=== PATIENT | female | born 1955 | race Caucasian/White ===

== ENCOUNTER 2019-01-20 09:27 | Inpatient (IN) | payer MEDICARE ==
[~2019-01-20] VITALS: Ht 167.6 cm; Wt 60.5 kg
[~2019-01-20 09:27] MED LIST: ALBU2.5V8 IH; AMOX1TAB61 PO; BP MED; DOXY100C2 PO; LEVO500T59 PO; METH4TAB PO; POTA20TA12 PO; PRED20TA PO; TRIA1TAB3 PO; VARE1TAB5 PO
[2019-01-20] MEDS ORDERED: IV NORMAL SALINE 1000ML BAG 1,000 ML IV SCH (09:59)
[2019-01-20 10:30] LABS: BASO # 0.1 x10^3/uL (0.0-0.2); BASO % 1 % (0-3); EOS # 0.1 x10^3/uL (0.0-0.7); EOS % 0 % (0-3); HEMATOCRIT 43.5 % (36.0-47.0); HEMOGLOBIN 14.4 g/dL (12.0-15.5); LYMPH # 0.8 x10^3/uL (1.0-4.8); LYMPH % 6 % (24-48); MEAN CORPUSCULAR HEMOGLOBIN 29 pg (25-35); MEAN CORPUSCULAR HGB CONC 33 g/dL (31-37); MEAN CORPUSCULAR VOLUME 89 fL (79-100); MONO # 0.9 x10^3/uL (0.0-1.1); MONO % 6 % (0-9); NEUT # 12.7 x10^3uL (1.8-7.7); NEUT % 87 % (31-73); PLATELET COUNT 209 x10^3/uL (140-400); RED BLOOD COUNT 4.91 x10^6/uL (3.50-5.40); RED CELL DISTRIBUTION WIDTH 13.5 % (11.5-14.5); WHITE BLOOD COUNT 14.5 x10^3/uL (4.0-11.0)
[2019-01-20] MEDS ORDERED: IPRATRPIUM/ALBUTEROL 0.5/2.5MG 3 ML NEBU. NEB ONE (10:30)
[2019-01-20] MEDS ORDERED: ONDANSETRON PF 4 MG/2 ML VIAL. IV ONE (10:30)
[2019-01-20] MEDS ORDERED: DEXAMETHASONE SOD PHOS 20 MG/5 ML VIAL. IV ONE (10:30)
[2019-01-20] MEDS ORDERED: ACETAMINOPHEN 500 MG TABLET PO ONE (10:45)
--- NOTE | 2019-01-20 10:47 | RAD ---
Chest, 2 views, 01/20/2019: HISTORY: Shortness of breath Comparison is made to a study from 11/09/2015. The lungs are hyperexpanded compatible with COPD. There is mild prominence of the pulmonary markings, more so on the right, likely due to scarring. Linear opacities in the right chest suggests discoid atelectasis and/or scarring. There is no evidence of pleural fluid. The heart size is normal. IMPRESSION: 1. COPD with parenchymal scarring. 2. Linear right lower chest opacities suggest additional scarring and/or discoid atelectasis. Electronically signed by: Vimal Nixon MD (01/20/2019 10:44 AM) [facility]
[2019-01-20 11:05] LABS: CALCIUM 9.3 mg/dL (8.5-10.1); CREATININE 0.9 mg/dL (0.6-1.0); GFR 62.8; POTASSIUM 3.5 mmol/L (3.5-5.1)
[2019-01-20 11:40] LABS: MAGNESIUM 1.7 mg/dL (1.8-2.4); TOTAL BILIRUBIN 0.5 mg/dL (0.2-1.0); TOTAL PROTEIN 7.9 g/dL (6.4-8.2)
[2019-01-20 11:47] LABS: ALBUMIN 3.2 g/dL (3.4-5.0); ALBUMIN/GLOBULIN RATIO 0.7 (1.0-1.7)
--- NOTE | 2019-01-20 11:48 | PHYS DOC ---
Past Medical History Past Medical History: A-Fib, COPD, Hypertension, Pneumonia Additional Past Medical Histor: HX OF PNEUMONIA Past Surgical History: Other Additional Past Surgical Histo: R Ankle Fx Smoking: Cigarettes Alcohol Use: Occasionally Drug Use: None Adult General Chief Complaint Chief Complaint: SHORTNESS OF BREATH HPI HPI Patient is a 63 year old female with history of COPD who presents with shortness of breath and cough that has progressed over the past two weeks. She denies fever or chills and her cough has been productive of white sputum. She has been using her home breathing treatments with minimal improvement and her dyspnea progressed to the point today where she decided to seek treatment. She has had multiple bouts of pneumonia but states that this does not feel similar to those previous illnesses. She describes some chest pain yesterday that was bilateral along the ribs and states that it felt sore. At home she uses 3 L of O2 as needed, typically at nighttime. Review of Systems Review of Systems Constitutional: Denies fever or chills HENT: Denies nasal congestion or sore throat Respiratory: Reports cough, shortness of breath, dyspnea Cardiovascular: Denies chest pain or palpitations at this time GI: Reports nausea. Denies abdominal pain, vomiting, diarrhea or constipation. : Denies dysuria or hematuria Neurologic: Denies headache, focal weakness or sensory changes Complete systems were reviewed and found to be within normal limits, except as documented in this note. Current Medications Current Medications Current Medications Medications (Trade) Dose Ordered Sig/Guillermo Start Time Stop Time Status Last Admin Dose Admin Acetaminophen (Tylenol) 500 mg 1X ONCE 01/20/19 10:45 01/20/19 10:46 DC 01/20/19 11:08 500 MG Albuterol/ Ipratropium (Duoneb) 3 ml 1X ONCE 01/20/19 10:30 01/20/19 10:31 DC 01/20/19 10:28 3 ML Dexamethasone Sodium Phosphate (Decadron) 10 mg 1X ONCE 01/20/19 10:30 01/20/19 10:31 DC 01/20/19 11:10 10 MG Ondansetron HCl (Zofran) 4 mg 1X ONCE 01/20/19 10:30 01/20/19 10:31 DC 01/20/19 11:10 4 MG Sodium Chloride 1,000 ml @ 1,000 mls/hr Q1H 01/20/19 09:59 01/20/19 10:58 DC 01/20/19 11:13 1,000 MLS/HR Allergies Allergies Allergies Coded Allergies Type Severity Reaction Last Updated Verified No Known Drug Allergies 01/12/15 No Physical Exam Physical Exam Constitutional: Well developed, well nourished, in mild respiratory distress, non-toxic appearance HENT: Normocephalic, atraumatic, oropharynx dry Eyes: EOMI, conjunctiva normal, no discharge Neck: Supple without tenderness or lymphadenopathy Cardiovascular: Heart rate normal, regular rhythm Lungs & Thorax: Diminished breath sounds bilaterally, no focality noted. No expiratory or inspiratory wheezing. Patient within a prolonged expiratory phase through pursed lips Abdomen: Soft, no tenderness Extremities: Radial pulses +2 bilaterally, cap refill less than 2 seconds Neurologic: Alert and oriented, no focal deficits noted Psychologic: Affect normal, judgement normal, mood normal Current Patient Data Vital Signs Vital Signs Date Time Temp Pulse Resp B/P (MAP) Pulse Ox O2 Delivery O2 Flow Rate FiO2 01/20/19 10:30 94 Nasal Cannula 3.0 01/20/19 09:27 97.7 83 24 132/90 (104) 97.7 Lab Values Laboratory Tests Test 01/20/19 10:00 White Blood Count 14.5 x10^3/uL (4.0-11.0) H Red Blood Count 4.91 x10^6/uL (3.50-5.40) Hemoglobin 14.4 g/dL (12.0-15.5) Hematocrit 43.5 % (36.0-47.0) Mean Corpuscular Volume 89 fL (79-100) Mean Corpuscular Hemoglobin 29 pg (25-35) Mean Corpuscular Hemoglobin Concent 33 g/dL (31-37) Red Cell Distribution Width 13.5 % (11.5-14.5) Platelet Count 209 x10^3/uL (140-400) Neutrophils (%) (Auto) 87 % (31-73) H Lymphocytes (%) (Auto) 6 % (24-48) L Monocytes (%) (Auto) 6 % (0-9) Eosinophils (%) (Auto) 0 % (0-3) Basophils (%) (Auto) 1 % (0-3) Neutrophils # (Auto) 12.7 x10^3uL (1.8-7.7) H Lymphocytes # (Auto) 0.8 x10^3/uL (1.0-4.8) L Monocytes # (Auto) 0.9 x10^3/uL (0.0-1.1) Eosinophils # (Auto) 0.1 x10^3/uL (0.0-0.7) Basophils # (Auto) 0.1 x10^3/uL (0.0-0.2) Segmented Neutrophils % 89 % (35-66) H Band Neutrophils % 1 % (0-9) Lymphocytes % 5 % (24-48) L Monocytes % 5 % (0-10) Platelet Estimate Adequate (ADEQUATE) Sodium Level 139 mmol/L (136-145) Potassium Level 3.5 mmol/L (3.5-5.1) Chloride Level 99 mmol/L (98-107) Carbon Dioxide Level 29 mmol/L (21-32) Anion Gap 11 (6-14) Blood Urea Nitrogen 24 mg/dL (7-20) H Creatinine 0.9 mg/dL (0.6-1.0) Estimated GFR (Cockcroft-Gault) 62.8 BUN/Creatinine Ratio 27 (6-20) H Glucose Level 113 mg/dL (70-99) H Lactic Acid Level 1.5 mmol/L (0.4-2.0) Calcium Level 9.3 mg/dL (8.5-10.1) Magnesium Level 1.7 mg/dL (1.8-2.4) L Total Bilirubin 0.5 mg/dL (0.2-1.0) Aspartate Amino Transferase (AST) 19 U/L (15-37) Alanine Aminotransferase (ALT) 17 U/L (14-59) Alkaline Phosphatase 89 U/L (46-116) Creatine Kinase 138 U/L (26-192) Creatine Kinase MB (Mass) 1.2 ng/mL (0.0-3.6) Creatine Kinase MB Relative Index 0.9 % (0-4) Troponin I Quantitative < 0.017 ng/mL (0.000-0.055) PJ-Ayo-C-Type Natriuretic Peptide 502 pg/mL (0-124) H Total Protein 7.9 g/dL (6.4-8.2) Albumin 3.2 g/dL (3.4-5.0) L Albumin/Globulin Ratio 0.7 (1.0-1.7) L Lipase 67 U/L (73-393) L Laboratory Tests 01/20/19 10:00 Laboratory Tests 01/20/19 10:00 EKG EKG @0952: Sinus rhythm with rate of 82. Left axis deviation. No Q waves. Single PVC present. No ST segment elevation or depression.[] Radiology/Procedures Radiology/Procedures PROCEDURE: CHEST PA & LATERAL Chest, 2 views, 01/20/2019: HISTORY: Shortness of breath Comparison is made to a study from 11/09/2015. The lungs are hyperexpanded compatible with COPD. There is mild prominence of the pulmonary markings, more so on the right, likely due to scarring. Linear opacities in the right chest suggests discoid atelectasis and/or scarring. There is no evidence of pleural fluid. The heart size is normal. IMPRESSION: 1. COPD with parenchymal scarring. 2. Linear right lower chest opacities suggest additional scarring and/or discoid atelectasis. Electronically signed by: Vimal Nixon MD (01/20/2019 10:44 AM) [facility][] Course & Med Decision Making Course & Med Decision Making Pertinent Labs and Imaging studies reviewed. (See chart for details) Patient is a 63 year old female with past medical history of COPD who presents with 2 weeks of progressive cough and shortness of breath. Physical exam was positive for diminished breath sounds without any focal adventitious wheezing or rhonchi. Breathing treatment in ED provided only minimal improvement of her respiratory effort. She occasionally uses 3 L O2 at home but has required 3 L consistently in the ED and is maintaining her saturations in the low 90s. Steroids and fluids given in ED. Lactate negative. CBC showed leukocytosis with WBC of 14.5 but X-ray showed no evidence of pneumonia or effusion. Troponin negative. Lipase and CMP negative. Given patient's dyspnea and minimal improvement with Duoneb, she was agreeable to admission for further treatment of what is likely a COPD exacerbation. Patient states that her PCP is Dr. Richardson however she has not been seen for 2 years and thus will be admitted to hospitalist group. Patient requiring admission for further evaluation and treatment. Discussed with Dr. Iniguez (hospitalist) who is in agreement with admission. Discussed findings and plan with patient and family, who acknowledge understanding and agreement. [] Dragon Disclaimer Dragon Disclaimer This electronic medical record was generated, in whole or in part, using a voice recognition dictation system. Departure Departure Impression: Primary Impression: Shortness of breath Additional Impressions: COPD exacerbation Hypoxia Disposition: ADMITTED INPATIENT Admitting Physician: Massimo Snyder Condition: STABLE Referrals: ADEEL RICHARDSON MD (PCP) Critical Care Time Critical care time was 30 minutes which includes time at bedside, spent in discu ssion of patient's care with specialists and/or family members, with interpretation of laboratory and/or radiological studies and is exclusive of procedures. Problem Qualifiers SHAI BLANC DO January 20, 2019 11:48
[2019-01-20 11:52] LABS: % BANDS 1 % (0-9); % LYMPHS 5 % (24-48); % MONOS 5 % (0-10); % SEGS 89 % (35-66); PLT ESTIMATE ADEQUATE (ADEQUATE)
--- NOTE | 2019-01-20 13:04 | EKG ---
[facility] [address] [place] [address] Test Date: 2019-01-20 Test Time: 09:52:04 Pat Name: EDITH COMER Department: Room: Gender: F [employer]: : 1955 Requested By: SHAI BLANC Order Number: [id number] Reading MD: Measurements Intervals [place] Rate: 82 P: 0 DE: 128 QRS: -43 QRSD: 78 T: 66 QT: 370 QTc: 435 Interpretive Statements SINUS RHYTHM VENTRICULAR PREMATURE COMPLEX(ES) ABNORMAL LEFT AXIS DEVIATION S1,S2,S3 PATTERN NON SPECIFIC T ABNORMALITY ABNORMAL ECG No previous ECG available for comparison
[2019-01-20 15:00] VITALS: BP 147/83
[2019-01-20] MEDS: IPRATRPIUM/ALBUTEROL 0.5/2.5MG 3 ML NEBU. NEB SCH ×2 (15:19→19:41)
--- NOTE | 2019-01-20 16:04 | PDOC ---
PULMONARY PROGRESS NOTES Vitals Vital Signs Date Time Temp Pulse Resp B/P (MAP) Pulse Ox O2 Delivery O2 Flow Rate FiO2 01/20/19 15:22 94 Nasal Cannula 3.0 01/20/19 13:15 80 42 147/78 (101) 01/20/19 09:27 97.7 97.7 General: Alert, No acute distress Lungs: Other Cardiovascular: S1 Abdomen: Soft Extremities: No Edema Labs Laboratory Tests Test 01/20/19 10:00 White Blood Count 14.5 x10^3/uL (4.0-11.0) Red Blood Count 4.91 x10^6/uL (3.50-5.40) Hemoglobin 14.4 g/dL (12.0-15.5) Hematocrit 43.5 % (36.0-47.0) Mean Corpuscular Volume 89 fL (79-100) Mean Corpuscular Hemoglobin 29 pg (25-35) Mean Corpuscular Hemoglobin Concent 33 g/dL (31-37) Red Cell Distribution Width 13.5 % (11.5-14.5) Platelet Count 209 x10^3/uL (140-400) Neutrophils (%) (Auto) 87 % (31-73) Lymphocytes (%) (Auto) 6 % (24-48) Monocytes (%) (Auto) 6 % (0-9) Eosinophils (%) (Auto) 0 % (0-3) Basophils (%) (Auto) 1 % (0-3) Neutrophils # (Auto) 12.7 x10^3uL (1.8-7.7) Lymphocytes # (Auto) 0.8 x10^3/uL (1.0-4.8) Monocytes # (Auto) 0.9 x10^3/uL (0.0-1.1) Eosinophils # (Auto) 0.1 x10^3/uL (0.0-0.7) Basophils # (Auto) 0.1 x10^3/uL (0.0-0.2) Segmented Neutrophils % 89 % (35-66) Band Neutrophils % 1 % (0-9) Lymphocytes % 5 % (24-48) Monocytes % 5 % (0-10) Platelet Estimate Adequate (ADEQUATE) Sodium Level 139 mmol/L (136-145) Potassium Level 3.5 mmol/L (3.5-5.1) Chloride Level 99 mmol/L (98-107) Carbon Dioxide Level 29 mmol/L (21-32) Anion Gap 11 (6-14) Blood Urea Nitrogen 24 mg/dL (7-20) Creatinine 0.9 mg/dL (0.6-1.0) Estimated GFR (Cockcroft-Gault) 62.8 BUN/Creatinine Ratio 27 (6-20) Glucose Level 113 mg/dL (70-99) Lactic Acid Level 1.5 mmol/L (0.4-2.0) Calcium Level 9.3 mg/dL (8.5-10.1) Magnesium Level 1.7 mg/dL (1.8-2.4) Total Bilirubin 0.5 mg/dL (0.2-1.0) Aspartate Amino Transf (AST/SGOT) 19 U/L (15-37) Alanine Aminotransferase (ALT/SGPT) 17 U/L (14-59) Alkaline Phosphatase 89 U/L (46-116) Creatine Kinase 138 U/L (26-192) Creatine Kinase MB (Mass) 1.2 ng/mL (0.0-3.6) Creatine Kinase MB Relative Index 0.9 % (0-4) Troponin I Quantitative < 0.017 ng/mL (0.000-0.055) VM-Xrq-F-Type Natriuretic Peptide 502 pg/mL (0-124) Total Protein 7.9 g/dL (6.4-8.2) Albumin 3.2 g/dL (3.4-5.0) Albumin/Globulin Ratio 0.7 (1.0-1.7) Lipase 67 U/L (73-393) Laboratory Tests Test 01/20/19 10:00 White Blood Count 14.5 x10^3/uL (4.0-11.0) Red Blood Count 4.91 x10^6/uL (3.50-5.40) Hemoglobin 14.4 g/dL (12.0-15.5) Hematocrit 43.5 % (36.0-47.0) Mean Corpuscular Volume 89 fL (79-100) Mean Corpuscular Hemoglobin 29 pg (25-35) Mean Corpuscular Hemoglobin Concent 33 g/dL (31-37) Red Cell Distribution Width 13.5 % (11.5-14.5) Platelet Count 209 x10^3/uL (140-400) Neutrophils (%) (Auto) 87 % (31-73) Lymphocytes (%) (Auto) 6 % (24-48) Monocytes (%) (Auto) 6 % (0-9) Eosinophils (%) (Auto) 0 % (0-3) Basophils (%) (Auto) 1 % (0-3) Neutrophils # (Auto) 12.7 x10^3uL (1.8-7.7) Lymphocytes # (Auto) 0.8 x10^3/uL (1.0-4.8) Monocytes # (Auto) 0.9 x10^3/uL (0.0-1.1) Eosinophils # (Auto) 0.1 x10^3/uL (0.0-0.7) Basophils # (Auto) 0.1 x10^3/uL (0.0-0.2) Segmented Neutrophils % 89 % (35-66) Band Neutrophils % 1 % (0-9) Lymphocytes % 5 % (24-48) Monocytes % 5 % (0-10) Platelet Estimate Adequate (ADEQUATE) Sodium Level 139 mmol/L (136-145) Potassium Level 3.5 mmol/L (3.5-5.1) Chloride Level 99 mmol/L (98-107) Carbon Dioxide Level 29 mmol/L (21-32) Anion Gap 11 (6-14) Blood Urea Nitrogen 24 mg/dL (7-20) Creatinine 0.9 mg/dL (0.6-1.0) Estimated GFR (Cockcroft-Gault) 62.8 BUN/Creatinine Ratio 27 (6-20) Glucose Level 113 mg/dL (70-99) Lactic Acid Level 1.5 mmol/L (0.4-2.0) Calcium Level 9.3 mg/dL (8.5-10.1) Magnesium Level 1.7 mg/dL (1.8-2.4) Total Bilirubin 0.5 mg/dL (0.2-1.0) Aspartate Amino Transf (AST/SGOT) 19 U/L (15-37) Alanine Aminotransferase (ALT/SGPT) 17 U/L (14-59) Alkaline Phosphatase 89 U/L (46-116) Creatine Kinase 138 U/L (26-192) Creatine Kinase MB (Mass) 1.2 ng/mL (0.0-3.6) Creatine Kinase MB Relative Index 0.9 % (0-4) Troponin I Quantitative < 0.017 ng/mL (0.000-0.055) HW-Wip-F-Type Natriuretic Peptide 502 pg/mL (0-124) Total Protein 7.9 g/dL (6.4-8.2) Albumin 3.2 g/dL (3.4-5.0) Albumin/Globulin Ratio 0.7 (1.0-1.7) Lipase 67 U/L (73-393) Medications Active Scripts Medications Dose Route/Sig Max Daily Dose Days Date Category Dose Instructions Augmentin 875-125 Tablet (Amoxicillin/Potassium Clav) 1 Each Tablet 1 Tab PO BID 11/11/15 Reported START IMMEDIATELY Potassium Chloride 20 Meq Tab.er.prt 1 Tab PO DAILY 11/11/15 Reported LAST DOSE: 11/11/15 AM NEXT DOSE: 11/12/15 AM Proair Hfa Inhaler (Albuterol Sulfate) 8.5 Gm Hfa.aer.ad 2 Puff IH PRN Q4-6HRS 05/02/15 Rx Impression . FULL CONSULT DICTATED SEE ORDERS ACOPD ABNORMAL CXR THANKS TAYLOR LYMAN MD January 20, 2019 16:04
[2019-01-20] MEDS ORDERED: ALBUTEROL SULFATE 2.5 MG/3 ML NEBU. NEB PRN (16:15)
--- NOTE | 2019-01-20 17:07 | RAD ---
CT of the chest without contrast, 01/20/2019: HISTORY: Abnormal chest x-ray Noncontrast scans were obtained as requested and compared to a study from 11/06/2015. There is calcific plaquing of the thoracic aorta without evidence of aneurysm. Several coronary artery calcifications are noted. The heart is not enlarged. There is a trace amount of pericardial fluid present. Small mediastinal lymph nodes are seen. The largest of these measure approximately 1 cm in short axis dimension and are considered to be at the upper limits of normal in size. Dense consolidation present in the left lower chest on the previous study has resolved. There were a few scattered linear opacities in the lungs compatible with scarring. There are tiny nodular opacities demonstrating a centrilobular distribution as well as a tree-in-bud type configuration in some areas. There is dominant involvement of the right lung. Minimal scattered peripheral groundglass opacities are also noted on the right. There is no evidence of pleural fluid. There is an unchanged low-density left adrenal mass measuring approximately 1.8 x 4.1 cm. Its low internal CT number suggests an adrenal cyst or benign adenoma. IMPRESSION: 1. Mild, predominately centrilobular pulmonary opacities with dominant involvement of the right lung as described above. Diagnostic considerations include infectious bronchiolitis, respiratory bronchiolitis or hypersensitivity pneumonia. 2. Coronary artery calcifications. 3. Mediastinal lymph nodes of borderline size. 4. Stable left adrenal low-density mass compatible with a benign adenoma or cyst. PQRS Compliance Statement: One or more of the following individualized dose reduction techniques were utilized for this examination: 1. Automated exposure control 2. Adjustment of the mA and/or kV according to patient size 3. Use of iterative reconstruction technique Electronically signed by: Vimal Nixon MD (01/20/2019 5:04 PM) [facility]
--- NOTE | 2019-01-20 18:31 | PDOC1 ---
History and Physical Date of Admission Date of Admission DATE: 01/20/19 TIME: 18:31 Identification/Chief Complaint Chief Complaint seen in er, 63 year old female with history of COPD who presents with shortness of breath and cough that has progressed over the past two weeks. She denies fever or chills and her cough has been productive of white sputum. She has been using her home breathing treatments with minimal improvement and her dyspnea progressed to the point today where she decided to seek treatment. She has had multiple bouts of pneumonia but states that this does not feel similar to those previous illnesses. She describes some chest pain yesterday that was bilateral along the ribs and states that it felt sore. At home she uses 3 L of O2 as needed, typically at nighttime. no hemoptysis reported Past Medical History Past Medical History Past Medical History Past Medical History: A-Fib, COPD, Hypertension, Pneumonia Additional Past Medical Histor: HX OF PNEUMONIA Past Surgical History: Other Additional Past Surgical Histo: R Ankle Fx Smoking: Cigarettes Alcohol Use: Occasionally Drug Use: None fhx copd Cardiovascular: HTN Pulmonary: COPD, Pneumonia CENTRAL NERVOUS SYSTEM: Other GI: No pertinent hx Heme/Onc: No pertinent hx Hepatobiliary: No pertinent hx Psych: No pertinent hx Rheumatologic: No pertinent hx Infectious disease: No pertinent hx Renal/: No pertinent hx Endocrine: No pertinent hx Past Surgical History Past Surgical History: Other Family History Family History: Cancer, Diabetes, Heart Disease Social History Smoke: 1 pack per day ALCOHOL: occassional Drugs: None Current Problem List Problem List Problems Medical Problems: (1) COPD exacerbation Status: Acute (2) Hypoxia Status: Acute (3) Shortness of breath Status: Acute Current Medications Current Medications Current Medications Sodium Chloride 1,000 ml @ 1,000 mls/hr Q1H IV Last administered on 01/20/19at 11:13; Start 01/20/19 at 09:59; Stop 01/20/19 at 10:58; Status DC Albuterol/ Ipratropium (Duoneb) 3 ml 1X ONCE NEB Last administered on 01/20/19at 10:28; Start 01/20/19 at 10:30; Stop 01/20/19 at 10:31; Status DC Dexamethasone Sodium Phosphate (Decadron) 10 mg 1X ONCE IV Last administered on 01/20/19at 11:10; Start 01/20/19 at 10:30; Stop 01/20/19 at 10:31; Status DC Ondansetron HCl (Zofran) 4 mg 1X ONCE IV Last administered on 01/20/19at 11:10; Start 01/20/19 at 10:30; Stop 01/20/19 at 10:31; Status DC Acetaminophen (Tylenol) 500 mg 1X ONCE PO Last administered on 01/20/19at 11:08; Start 01/20/19 at 10:45; Stop 01/20/19 at 10:46; Status DC Albuterol/ Ipratropium (Duoneb) 3 ml RTQID NEB Last administered on 01/20/19at 15:19; Start 01/20/19 at 16:00; Stop 01/21/19 at 15:59 Levofloxacin/ Dextrose 100 ml @ 100 mls/hr Q24H IV Last administered on 01/20/19at 16:15; Start 01/20/19 at 16:15 Albuterol Sulfate (Ventolin Neb Soln) 2.5 mg PRN Q2HR PRN NEB DYSPNEA; Start 01/20/19 at 16:15 Enoxaparin Sodium (Lovenox 40mg Syringe) 40 mg DAILY SQ ; Start 01/21/19 at 09:00 Methylprednisolone Sodium Succinate (SOLU-Medrol 125MG VIAL) 60 mg BID IV ; Start 01/20/19 at 21:00 Active Scripts Active Proair Hfa Inhaler (Albuterol Sulfate) 8.5 Gm Hfa.aer.ad 2 Puff IH PRN Q4-6HRS Reported Augmentin 875-125 Tablet (Amoxicillin/Potassium Clav) 1 Each Tablet 1 Tab PO BID START IMMEDIATELY Potassium Chloride 20 Meq Tab.er.prt 1 Tab PO DAILY LAST DOSE: 11/11/15 AM NEXT DOSE: 11/12/15 AM Allergies Allergies: Coded Allergies: No Known Drug Allergies (Unverified , 01/12/15) ROS Review of System Review of Systems Review of Systems Constitutional: Denies fever or chills HENT: Denies nasal congestion or sore throat Respiratory: Reports cough, shortness of breath, dyspnea Cardiovascular: Denies chest pain or palpitations at this time GI: Reports nausea. Denies abdominal pain, vomiting, diarrhea or constipation. : Denies dysuria or hematuria Neurologic: Denies headache, focal weakness or sensory changes 14 pt systems were reviewed and found to be within normal limits, except as documented Physical Exam Physical Exam Physical Exam Physical Exam Constitutional: Well developed, well nourished, in mild respiratory distress, non-toxic appearance HENT: Normocephalic, atraumatic, oropharynx dry Eyes: EOMI, conjunctiva normal, no discharge Neck: Supple without tenderness or lymphadenopathy Cardiovascular: Heart rate normal, regular rhythm Lungs & Thorax: Diminished breath sounds bilaterally, no focality noted. No expiratory or inspiratory wheezing. Patient within a prolonged expiratory phase through pursed lips Abdomen: Soft, no tenderness Extremities: Radial pulses +2 bilaterally, cap refill less than 2 seconds Neurologic: Alert and oriented, no focal deficits noted Psychologic: Affect normal, judgement normal, mood normal General: mild distress HEENT: EOMI, Mucous membr. moist/pink Heart: RRR Breasts: Not examined Neuro: Normal speech, Strength at 5/5 X4 ext, Cranial nerves 3-12 NL Psych/Mental Status: Mental status NL, Mood NL Vitals Vitals Vital Signs Date Time Temp Pulse Resp B/P (MAP) Pulse Ox O2 Delivery O2 Flow Rate FiO2 01/20/19 17:21 Nasal Cannula 3.0 01/20/19 15:22 94 01/20/19 15:00 97.3 98 16 147/83 (104) 97.3 Labs Labs Laboratory Tests Test 01/20/19 10:00 White Blood Count 14.5 x10^3/uL (4.0-11.0) Red Blood Count 4.91 x10^6/uL (3.50-5.40) Hemoglobin 14.4 g/dL (12.0-15.5) Hematocrit 43.5 % (36.0-47.0) Mean Corpuscular Volume 89 fL (79-100) Mean Corpuscular Hemoglobin 29 pg (25-35) Mean Corpuscular Hemoglobin Concent 33 g/dL (31-37) Red Cell Distribution Width 13.5 % (11.5-14.5) Platelet Count 209 x10^3/uL (140-400) Neutrophils (%) (Auto) 87 % (31-73) Lymphocytes (%) (Auto) 6 % (24-48) Monocytes (%) (Auto) 6 % (0-9) Eosinophils (%) (Auto) 0 % (0-3) Basophils (%) (Auto) 1 % (0-3) Neutrophils # (Auto) 12.7 x10^3uL (1.8-7.7) Lymphocytes # (Auto) 0.8 x10^3/uL (1.0-4.8) Monocytes # (Auto) 0.9 x10^3/uL (0.0-1.1) Eosinophils # (Auto) 0.1 x10^3/uL (0.0-0.7) Basophils # (Auto) 0.1 x10^3/uL (0.0-0.2) Segmented Neutrophils % 89 % (35-66) Band Neutrophils % 1 % (0-9) Lymphocytes % 5 % (24-48) Monocytes % 5 % (0-10) Platelet Estimate Adequate (ADEQUATE) Sodium Level 139 mmol/L (136-145) Potassium Level 3.5 mmol/L (3.5-5.1) Chloride Level 99 mmol/L (98-107) Carbon Dioxide Level 29 mmol/L (21-32) Anion Gap 11 (6-14) Blood Urea Nitrogen 24 mg/dL (7-20) Creatinine 0.9 mg/dL (0.6-1.0) Estimated GFR (Cockcroft-Gault) 62.8 BUN/Creatinine Ratio 27 (6-20) Glucose Level 113 mg/dL (70-99) Lactic Acid Level 1.5 mmol/L (0.4-2.0) Calcium Level 9.3 mg/dL (8.5-10.1) Magnesium Level 1.7 mg/dL (1.8-2.4) Total Bilirubin 0.5 mg/dL (0.2-1.0) Aspartate Amino Transf (AST/SGOT) 19 U/L (15-37) Alanine Aminotransferase (ALT/SGPT) 17 U/L (14-59) Alkaline Phosphatase 89 U/L (46-116) Creatine Kinase 138 U/L (26-192) Creatine Kinase MB (Mass) 1.2 ng/mL (0.0-3.6) Creatine Kinase MB Relative Index 0.9 % (0-4) Troponin I Quantitative < 0.017 ng/mL (0.000-0.055) KN-Aee-R-Type Natriuretic Peptide 502 pg/mL (0-124) Total Protein 7.9 g/dL (6.4-8.2) Albumin 3.2 g/dL (3.4-5.0) Albumin/Globulin Ratio 0.7 (1.0-1.7) Lipase 67 U/L (73-393) Laboratory Tests Test 01/20/19 10:00 White Blood Count 14.5 x10^3/uL (4.0-11.0) Red Blood Count 4.91 x10^6/uL (3.50-5.40) Hemoglobin 14.4 g/dL (12.0-15.5) Hematocrit 43.5 % (36.0-47.0) Mean Corpuscular Volume 89 fL (79-100) Mean Corpuscular Hemoglobin 29 pg (25-35) Mean Corpuscular Hemoglobin Concent 33 g/dL (31-37) Red Cell Distribution Width 13.5 % (11.5-14.5) Platelet Count 209 x10^3/uL (140-400) Neutrophils (%) (Auto) 87 % (31-73) Lymphocytes (%) (Auto) 6 % (24-48) Monocytes (%) (Auto) 6 % (0-9) Eosinophils (%) (Auto) 0 % (0-3) Basophils (%) (Auto) 1 % (0-3) Neutrophils # (Auto) 12.7 x10^3uL (1.8-7.7) Lymphocytes # (Auto) 0.8 x10^3/uL (1.0-4.8) Monocytes # (Auto) 0.9 x10^3/uL (0.0-1.1) Eosinophils # (Auto) 0.1 x10^3/uL (0.0-0.7) Basophils # (Auto) 0.1 x10^3/uL (0.0-0.2) Segmented Neutrophils % 89 % (35-66) Band Neutrophils % 1 % (0-9) Lymphocytes % 5 % (24-48) Monocytes % 5 % (0-10) Platelet Estimate Adequate (ADEQUATE) Sodium Level 139 mmol/L (136-145) Potassium Level 3.5 mmol/L (3.5-5.1) Chloride Level 99 mmol/L (98-107) Carbon Dioxide Level 29 mmol/L (21-32) Anion Gap 11 (6-14) Blood Urea Nitrogen 24 mg/dL (7-20) Creatinine 0.9 mg/dL (0.6-1.0) Estimated GFR (Cockcroft-Gault) 62.8 BUN/Creatinine Ratio 27 (6-20) Glucose Level 113 mg/dL (70-99) Lactic Acid Level 1.5 mmol/L (0.4-2.0) Calcium Level 9.3 mg/dL (8.5-10.1) Magnesium Level 1.7 mg/dL (1.8-2.4) Total Bilirubin 0.5 mg/dL (0.2-1.0) Aspartate Amino Transf (AST/SGOT) 19 U/L (15-37) Alanine Aminotransferase (ALT/SGPT) 17 U/L (14-59) Alkaline Phosphatase 89 U/L (46-116) Creatine Kinase 138 U/L (26-192) Creatine Kinase MB (Mass) 1.2 ng/mL (0.0-3.6) Creatine Kinase MB Relative Index 0.9 % (0-4) Troponin I Quantitative < 0.017 ng/mL (0.000-0.055) HO-Ukb-B-Type Natriuretic Peptide 502 pg/mL (0-124) Total Protein 7.9 g/dL (6.4-8.2) Albumin 3.2 g/dL (3.4-5.0) Albumin/Globulin Ratio 0.7 (1.0-1.7) Lipase 67 U/L (73-393) Images Images CT of the chest without contrast, 01/20/2019: HISTORY: Abnormal chest x-ray Noncontrast scans were obtained as requested and compared to a study from 11/06/2015. There is calcific plaquing of the thoracic aorta without evidence of aneurysm. Several coronary artery calcifications are noted. The heart is not enlarged. There is a trace amount of pericardial fluid present. Small mediastinal lymph nodes are seen. The largest of these measure approximately 1 cm in short axis dimension and are considered to be at the upper limits of normal in size. Dense consolidation present in the left lower chest on the previous study has resolved. There were a few scattered linear opacities in the lungs compatible with scarring. There are tiny nodular opacities demonstrating a centrilobular distribution as well as a tree-in-bud type configuration in some areas. There is dominant involvement of the right lung. Minimal scattered peripheral groundglass opacities are also noted on the right. There is no evidence of pleural fluid. There is an unchanged low-density left adrenal mass measuring approximately 1.8 x 4.1 cm. Its low internal CT number suggests an adrenal cyst or benign adenoma. IMPRESSION: 1. Mild, predominately centrilobular pulmonary opacities with dominant involvement of the right lung as described above. Diagnostic considerations include infectious bronchiolitis, respiratory bronchiolitis or hypersensitivity pneumonia. 2. Coronary artery calcifications. 3. Mediastinal lymph nodes of borderline size. 4. Stable left adrenal low-density mass compatible with a benign adenoma or cyst. VTE Prophylaxis Ordered VTE Prophylaxis Devices: Yes VTE Pharmacological Prophylaxi: Yes Assessment/Plan Assessment/Plan CT of the chest without contrast, 01/20/2019: IMPRESSION: 1. Mild, predominately centrilobular pulmonary opacities with dominant involvement of the right lung as described above. Diagnostic considerations include infectious bronchiolitis, respiratory bronchiolitis or hypersensitivity pneumonia. Dense consolidation present in the left lower chest on the previous study has resolved. There were a few scattered linear opacities in the lungs compatible with scarring. There are tiny nodular opacities demonstrating a centrilobular distribution as well as a tree-in-bud type configuration in some areas. There is dominant involvement of the right lung 2. Coronary artery calcifications. 3. Mediastinal lymph nodes of borderline size. 4. Stable left adrenal low-density mass compatible with a benign adenoma or cyst. 5. acute hypoxic resp failure 6. Acute exac of COPD PLAN O2 SUPPORT PULM CONSULT DVT PROPHYLAXIS iv levaquin iv tapering steroids dvt prophylaxis 72 MIN PT EXAM, CHART REVIEW, > 50% of time spent with exam, chart review, pt care coordination MIKEL PALACIOS MD January 20, 2019 18:31
[2019-01-20 19:41] VITALS: BP 120/67
[2019-01-20] MEDS: methylPREDNISolone SOD SUCC PF 125 MG/2 ML VIAL. IV SCH (21:10)
[2019-01-20 23:37] VITALS: BP 136/79
[2019-01-21] MEDS ORDERED: ALBUTEROL SULFATE 2.5 MG/3 ML NEBU. NEB PRN (00:15)
--- NOTE | 2019-01-21 01:05 | CONS ---
DATE OF CONSULTATION: 01/20/2019 ATTENDING PHYSICIAN: Dr. Iniguez. REASON FOR CONSULTATION: The patient is seen in pulmonary consultation at the request of Dr. Iniguez for increasing shortness of air. HISTORY OF PRESENT ILLNESS: The patient is a 63-year-old that has been smoking most of her adult life, has not been seen by a physician or in the Emergency Department in the past 12 months presented with increasing shortness of breath, cough productive of dark sputum. No hemoptysis. No nausea, vomiting or diarrhea. She normally wears oxygen at home. She has been wearing it on a p.r.n. basis, 3 liters. The patient denies syncope or near syncopal episode. No paroxysmal nocturnal dyspnea or pedal edema. PAST MEDICAL HISTORY: COPD, tobacco dependence, atrial fibrillation, hypertension, previous pneumonia. PAST SURGICAL HISTORY: She has had right ankle fracture repair. SOCIAL HISTORY: She smokes. Denies any alcohol intake. REVIEW OF SYSTEMS: CONSTITUTIONAL: No fever or chills. EYES: No change in visual acuity. HEENT: No nasal congestion or sore throat. PULMONARY: As indicated above. CARDIOVASCULAR: No chest pain or pressure. No anginal type of discomfort. GASTROINTESTINAL: No nausea, vomiting or diarrhea. GENITOURINARY: No dysuria or frequency. MUSCULOSKELETAL: No localized muscle aches or joint pains. SKIN: No new skin rashes. NEUROLOGIC: No headaches, diplopia or blurred vision. ALLERGIES: No known drug allergies. FAMILY HISTORY: Sister with bladder cancer. CURRENT MEDICATIONS: List was reviewed. PHYSICAL EXAMINATION: GENERAL: The patient appeared to be older than stated age. VITAL SIGNS: Stable. O2 saturation was greater than 92%. HEENT: Eyes, the sclerae were nonicteric. NECK: Jugular venous distention was not elevated. No lymphadenopathy. CHEST: Full expansion. LUNGS: Adequate airway flow with no wheezes. CARDIOVASCULAR: Regular rate and rhythm with S1, S2, no S3. ABDOMEN: Soft, nontender, nondistended. EXTREMITIES: No clubbing, cyanosis or edema. NEUROLOGIC: The patient was awake, alert, following commands. A detailed neuro exam was not performed. LABORATORY DATA: Reviewed. White count was elevated. Hemoglobin and hematocrit were noted. Electrolytes were noted. BUN and creatinine noted. Albumin was low. Chest x-ray reveals some scarring, possibly discoid atelectasis. IMPRESSION: 1. Acute exacerbation of chronic obstructive pulmonary disease. 2. Acute on chronic respiratory failure. 3. Abnormal chest x-ray. 4. Tobacco dependence. 5. Hypertension. 6. Chronic atrial fibrillation. PLAN: 1. Continue current steroids and antibiotics. 2. CT chest. 3. DVT prophylaxis. 4. Nebulized treatments. 5. We will make further recommendation depending on CT scan findings. 6. Once discharged home, follow up in the office. I do appreciate the privilege in sharing in this patient's care. TAYLOR LYMAN MD DR: MAMADOU/simon JOB#: [id number] / [id number]
[2019-01-21 03:59] VITALS: BP 145/69
[2019-01-21 07:00] VITALS: BP 134/79
[2019-01-21] MEDS: IPRATRPIUM/ALBUTEROL 0.5/2.5MG 3 ML NEBU. NEB SCH (07:22)
[2019-01-21] MEDS ORDERED: guaiFENesin DM 200MG/20MG 10 ML SYRUP PO PRN (07:45)
[2019-01-21] MEDS ORDERED: NICOTINE POLACRILEX 2MG GUM PACKAGE of 12. BC PRN (07:45)
[2019-01-21] MEDS ORDERED: NICOTINE 21MG PATCH. TD PRN (07:45)
[2019-01-21] MEDS: ENOXAPARIN 40 MG/0.4 ML SYRINGE. SQ SCH ×2 (08:13→08:18)
[2019-01-21] MEDS: methylPREDNISolone SOD SUCC PF 125 MG/2 ML VIAL. IV SCH (08:13)
--- NOTE | 2019-01-21 08:29 | PDOC ---
PULMONARY PROGRESS NOTES Subjective sob better, has cough, no pain Vitals Vital Signs Date Time Temp Pulse Resp B/P (MAP) Pulse Ox O2 Delivery O2 Flow Rate FiO2 01/21/19 07:24 94 Nasal Cannula 3.0 01/21/19 03:59 97.7 73 20 145/69 (94) 97.7 General: Alert, No acute distress Lungs: Other Cardiovascular: Other (irreg ) Abdomen: Soft, Non-tender Extremities: No Edema Skin: Warm Labs Laboratory Tests Test 01/20/19 10:00 White Blood Count 14.5 x10^3/uL (4.0-11.0) Red Blood Count 4.91 x10^6/uL (3.50-5.40) Hemoglobin 14.4 g/dL (12.0-15.5) Hematocrit 43.5 % (36.0-47.0) Mean Corpuscular Volume 89 fL (79-100) Mean Corpuscular Hemoglobin 29 pg (25-35) Mean Corpuscular Hemoglobin Concent 33 g/dL (31-37) Red Cell Distribution Width 13.5 % (11.5-14.5) Platelet Count 209 x10^3/uL (140-400) Neutrophils (%) (Auto) 87 % (31-73) Lymphocytes (%) (Auto) 6 % (24-48) Monocytes (%) (Auto) 6 % (0-9) Eosinophils (%) (Auto) 0 % (0-3) Basophils (%) (Auto) 1 % (0-3) Neutrophils # (Auto) 12.7 x10^3uL (1.8-7.7) Lymphocytes # (Auto) 0.8 x10^3/uL (1.0-4.8) Monocytes # (Auto) 0.9 x10^3/uL (0.0-1.1) Eosinophils # (Auto) 0.1 x10^3/uL (0.0-0.7) Basophils # (Auto) 0.1 x10^3/uL (0.0-0.2) Segmented Neutrophils % 89 % (35-66) Band Neutrophils % 1 % (0-9) Lymphocytes % 5 % (24-48) Monocytes % 5 % (0-10) Platelet Estimate Adequate (ADEQUATE) Sodium Level 139 mmol/L (136-145) Potassium Level 3.5 mmol/L (3.5-5.1) Chloride Level 99 mmol/L (98-107) Carbon Dioxide Level 29 mmol/L (21-32) Anion Gap 11 (6-14) Blood Urea Nitrogen 24 mg/dL (7-20) Creatinine 0.9 mg/dL (0.6-1.0) Estimated GFR (Cockcroft-Gault) 62.8 BUN/Creatinine Ratio 27 (6-20) Glucose Level 113 mg/dL (70-99) Lactic Acid Level 1.5 mmol/L (0.4-2.0) Calcium Level 9.3 mg/dL (8.5-10.1) Magnesium Level 1.7 mg/dL (1.8-2.4) Total Bilirubin 0.5 mg/dL (0.2-1.0) Aspartate Amino Transf (AST/SGOT) 19 U/L (15-37) Alanine Aminotransferase (ALT/SGPT) 17 U/L (14-59) Alkaline Phosphatase 89 U/L (46-116) Creatine Kinase 138 U/L (26-192) Creatine Kinase MB (Mass) 1.2 ng/mL (0.0-3.6) Creatine Kinase MB Relative Index 0.9 % (0-4) Troponin I Quantitative < 0.017 ng/mL (0.000-0.055) SW-Jbe-N-Type Natriuretic Peptide 502 pg/mL (0-124) Total Protein 7.9 g/dL (6.4-8.2) Albumin 3.2 g/dL (3.4-5.0) Albumin/Globulin Ratio 0.7 (1.0-1.7) Lipase 67 U/L (73-393) Laboratory Tests Test 01/20/19 10:00 White Blood Count 14.5 x10^3/uL (4.0-11.0) Red Blood Count 4.91 x10^6/uL (3.50-5.40) Hemoglobin 14.4 g/dL (12.0-15.5) Hematocrit 43.5 % (36.0-47.0) Mean Corpuscular Volume 89 fL (79-100) Mean Corpuscular Hemoglobin 29 pg (25-35) Mean Corpuscular Hemoglobin Concent 33 g/dL (31-37) Red Cell Distribution Width 13.5 % (11.5-14.5) Platelet Count 209 x10^3/uL (140-400) Neutrophils (%) (Auto) 87 % (31-73) Lymphocytes (%) (Auto) 6 % (24-48) Monocytes (%) (Auto) 6 % (0-9) Eosinophils (%) (Auto) 0 % (0-3) Basophils (%) (Auto) 1 % (0-3) Neutrophils # (Auto) 12.7 x10^3uL (1.8-7.7) Lymphocytes # (Auto) 0.8 x10^3/uL (1.0-4.8) Monocytes # (Auto) 0.9 x10^3/uL (0.0-1.1) Eosinophils # (Auto) 0.1 x10^3/uL (0.0-0.7) Basophils # (Auto) 0.1 x10^3/uL (0.0-0.2) Segmented Neutrophils % 89 % (35-66) Band Neutrophils % 1 % (0-9) Lymphocytes % 5 % (24-48) Monocytes % 5 % (0-10) Platelet Estimate Adequate (ADEQUATE) Sodium Level 139 mmol/L (136-145) Potassium Level 3.5 mmol/L (3.5-5.1) Chloride Level 99 mmol/L (98-107) Carbon Dioxide Level 29 mmol/L (21-32) Anion Gap 11 (6-14) Blood Urea Nitrogen 24 mg/dL (7-20) Creatinine 0.9 mg/dL (0.6-1.0) Estimated GFR (Cockcroft-Gault) 62.8 BUN/Creatinine Ratio 27 (6-20) Glucose Level 113 mg/dL (70-99) Lactic Acid Level 1.5 mmol/L (0.4-2.0) Calcium Level 9.3 mg/dL (8.5-10.1) Magnesium Level 1.7 mg/dL (1.8-2.4) Total Bilirubin 0.5 mg/dL (0.2-1.0) Aspartate Amino Transf (AST/SGOT) 19 U/L (15-37) Alanine Aminotransferase (ALT/SGPT) 17 U/L (14-59) Alkaline Phosphatase 89 U/L (46-116) Creatine Kinase 138 U/L (26-192) Creatine Kinase MB (Mass) 1.2 ng/mL (0.0-3.6) Creatine Kinase MB Relative Index 0.9 % (0-4) Troponin I Quantitative < 0.017 ng/mL (0.000-0.055) CX-Qew-C-Type Natriuretic Peptide 502 pg/mL (0-124) Total Protein 7.9 g/dL (6.4-8.2) Albumin 3.2 g/dL (3.4-5.0) Albumin/Globulin Ratio 0.7 (1.0-1.7) Lipase 67 U/L (73-393) Medications Active Scripts Medications Dose Route/Sig Max Daily Dose Days Date Category Dose Instructions Augmentin 875-125 Tablet (Amoxicillin/Potassium Clav) 1 Each Tablet 1 Tab PO BID 11/11/15 Reported START IMMEDIATELY Potassium Chloride 20 Meq Tab.er.prt 1 Tab PO DAILY 11/11/15 Reported LAST DOSE: 11/11/15 AM NEXT DOSE: 11/12/15 AM Proair Hfa Inhaler (Albuterol Sulfate) 8.5 Gm Hfa.aer.ad 2 Puff IH PRN Q4-6HRS 05/02/[address] reviewed 1. Mild, predominately centrilobular pulmonary opacities with dominant involvement of the right lung as described above. Diagnostic considerations include infectious bronchiolitis, respiratory bronchiolitis or hypersensitivity pneumonia. 2. Coronary artery calcifications. 3. Mediastinal lymph nodes of borderline size. 4. Stable left adrenal low-density mass compatible with a benign adenoma or cyst. Impression . IMPRESSION: 1. Acute exacerbation of chronic obstructive pulmonary disease. 2. Acute on chronic respiratory failure. 3. Abnormal chest x-ray. 4. Tobacco dependence. 5. Hypertension. 6. Chronic atrial fibrillation. Plan . PLAN: 1. Continue antibiotics. 2. CT chest reviewed, recommend fu ct in 6-8 wks. 3. DVT prophylaxis. 4. Nebulized treatments. 5. advised to quit smoking for ever 6. change solumedrol to 40 mg bid Once discharged home, follow up in the office w BENNY Ornelas MD January 21, 2019 08:29
[2019-01-21] MEDS ORDERED: NAPROXEN 500 MG TABLET PO SCH (09:00)
[2019-01-21] MEDS ORDERED: POTASSIUM CHLORIDE 20 MEQ TABLET.ER. PO SCH (09:00)
[2019-01-21] MEDS ORDERED: methylPREDNISolone SOD SUCC PF 125 MG/2 ML VIAL. IV SCH (09:00)
[2019-01-21] MEDS ORDERED: BUDE0.5A3 NEB (09:32)
[2019-01-21] MEDS ORDERED: Nicotine 21MG TD (09:32)
[2019-01-21] MEDS ORDERED: ALBU2.5V14 NEB (09:32)
[2019-01-21] MEDS ORDERED: GUAI5SYR PO (09:32)
[2019-01-21] MEDS ORDERED: LEVO500T59 PO (09:32)
[2019-01-21] MEDS ORDERED: IPRA3AMP29 NEB (09:32)
--- NOTE | 2019-01-21 09:36 | PDOC3 ---
Discharge Summary Visit Information Date of Admission: January 20, 2019 Date of Discharge: January 21, 2019 Admitting Diagnosis Comment: 1. Acute exacerbation of chronic obstructive pulmonary disease. 2. Acute on chronic respiratory failure. 3. Abnormal chest x-ray./Findings of acute bronchitis/acute bronchitis on CAT scan 4. Tobacco dependence. 5. Hypertension. 6. Chronic atrial fibrillation. Final Diagnosis Problems Medical Problems: (1) COPD exacerbation Status: Acute (2) Hypoxia Status: Acute (3) Shortness of breath Status: Acute Brief Hospital Course Allergies Allergies Coded Allergies Type Severity Reaction Last Updated Verified No Known Drug Allergies 01/12/15 No Vital Signs Vital Signs Date Time Temp Pulse Resp B/P (MAP) Pulse Ox O2 Delivery O2 Flow Rate FiO2 01/21/19 08:00 Nasal Cannula 3.0 01/21/19 07:24 94 01/21/19 07:00 97.6 84 18 134/79 (97) 97.6 Lab Results Laboratory Tests Test 01/20/19 10:00 White Blood Count 14.5 x10^3/uL (4.0-11.0) Red Blood Count 4.91 x10^6/uL (3.50-5.40) Hemoglobin 14.4 g/dL (12.0-15.5) Hematocrit 43.5 % (36.0-47.0) Mean Corpuscular Volume 89 fL (79-100) Mean Corpuscular Hemoglobin 29 pg (25-35) Mean Corpuscular Hemoglobin Concent 33 g/dL (31-37) Red Cell Distribution Width 13.5 % (11.5-14.5) Platelet Count 209 x10^3/uL (140-400) Neutrophils (%) (Auto) 87 % (31-73) Lymphocytes (%) (Auto) 6 % (24-48) Monocytes (%) (Auto) 6 % (0-9) Eosinophils (%) (Auto) 0 % (0-3) Basophils (%) (Auto) 1 % (0-3) Neutrophils # (Auto) 12.7 x10^3uL (1.8-7.7) Lymphocytes # (Auto) 0.8 x10^3/uL (1.0-4.8) Monocytes # (Auto) 0.9 x10^3/uL (0.0-1.1) Eosinophils # (Auto) 0.1 x10^3/uL (0.0-0.7) Basophils # (Auto) 0.1 x10^3/uL (0.0-0.2) Segmented Neutrophils % 89 % (35-66) Band Neutrophils % 1 % (0-9) Lymphocytes % 5 % (24-48) Monocytes % 5 % (0-10) Platelet Estimate Adequate (ADEQUATE) Sodium Level 139 mmol/L (136-145) Potassium Level 3.5 mmol/L (3.5-5.1) Chloride Level 99 mmol/L (98-107) Carbon Dioxide Level 29 mmol/L (21-32) Anion Gap 11 (6-14) Blood Urea Nitrogen 24 mg/dL (7-20) Creatinine 0.9 mg/dL (0.6-1.0) Estimated GFR (Cockcroft-Gault) 62.8 BUN/Creatinine Ratio 27 (6-20) Glucose Level 113 mg/dL (70-99) Lactic Acid Level 1.5 mmol/L (0.4-2.0) Calcium Level 9.3 mg/dL (8.5-10.1) Magnesium Level 1.7 mg/dL (1.8-2.4) Total Bilirubin 0.5 mg/dL (0.2-1.0) Aspartate Amino Transf (AST/SGOT) 19 U/L (15-37) Alanine Aminotransferase (ALT/SGPT) 17 U/L (14-59) Alkaline Phosphatase 89 U/L (46-116) Creatine Kinase 138 U/L (26-192) Creatine Kinase MB (Mass) 1.2 ng/mL (0.0-3.6) Creatine Kinase MB Relative Index 0.9 % (0-4) Troponin I Quantitative < 0.017 ng/mL (0.000-0.055) KL-Cxo-V-Type Natriuretic Peptide 502 pg/mL (0-124) Total Protein 7.9 g/dL (6.4-8.2) Albumin 3.2 g/dL (3.4-5.0) Albumin/Globulin Ratio 0.7 (1.0-1.7) Lipase 67 U/L (73-393) Laboratory Tests Test 01/20/19 10:00 White Blood Count 14.5 x10^3/uL (4.0-11.0) Red Blood Count 4.91 x10^6/uL (3.50-5.40) Hemoglobin 14.4 g/dL (12.0-15.5) Hematocrit 43.5 % (36.0-47.0) Mean Corpuscular Volume 89 fL (79-100) Mean Corpuscular Hemoglobin 29 pg (25-35) Mean Corpuscular Hemoglobin Concent 33 g/dL (31-37) Red Cell Distribution Width 13.5 % (11.5-14.5) Platelet Count 209 x10^3/uL (140-400) Neutrophils (%) (Auto) 87 % (31-73) Lymphocytes (%) (Auto) 6 % (24-48) Monocytes (%) (Auto) 6 % (0-9) Eosinophils (%) (Auto) 0 % (0-3) Basophils (%) (Auto) 1 % (0-3) Neutrophils # (Auto) 12.7 x10^3uL (1.8-7.7) Lymphocytes # (Auto) 0.8 x10^3/uL (1.0-4.8) Monocytes # (Auto) 0.9 x10^3/uL (0.0-1.1) Eosinophils # (Auto) 0.1 x10^3/uL (0.0-0.7) Basophils # (Auto) 0.1 x10^3/uL (0.0-0.2) Segmented Neutrophils % 89 % (35-66) Band Neutrophils % 1 % (0-9) Lymphocytes % 5 % (24-48) Monocytes % 5 % (0-10) Platelet Estimate Adequate (ADEQUATE) Sodium Level 139 mmol/L (136-145) Potassium Level 3.5 mmol/L (3.5-5.1) Chloride Level 99 mmol/L (98-107) Carbon Dioxide Level 29 mmol/L (21-32) Anion Gap 11 (6-14) Blood Urea Nitrogen 24 mg/dL (7-20) Creatinine 0.9 mg/dL (0.6-1.0) Estimated GFR (Cockcroft-Gault) 62.8 BUN/Creatinine Ratio 27 (6-20) Glucose Level 113 mg/dL (70-99) Lactic Acid Level 1.5 mmol/L (0.4-2.0) Calcium Level 9.3 mg/dL (8.5-10.1) Magnesium Level 1.7 mg/dL (1.8-2.4) Total Bilirubin 0.5 mg/dL (0.2-1.0) Aspartate Amino Transf (AST/SGOT) 19 U/L (15-37) Alanine Aminotransferase (ALT/SGPT) 17 U/L (14-59) Alkaline Phosphatase 89 U/L (46-116) Creatine Kinase 138 U/L (26-192) Creatine Kinase MB (Mass) 1.2 ng/mL (0.0-3.6) Creatine Kinase MB Relative Index 0.9 % (0-4) Troponin I Quantitative < 0.017 ng/mL (0.000-0.055) JD-Pmd-D-Type Natriuretic Peptide 502 pg/mL (0-124) Total Protein 7.9 g/dL (6.4-8.2) Albumin 3.2 g/dL (3.4-5.0) Albumin/Globulin Ratio 0.7 (1.0-1.7) Lipase 67 U/L (73-393) Brief Hospital Course Ms. Ruiz is a 63 old female who is at least 1 pack-a-day smoking, admitted for COPD exacerbation with findings of acute bronchitis on CAT scan. Stayed overnight. Able to Rx on either Pulmicort or prednisone which ever is cheaper for her, also asked her to buy a nebulizer, gave her some DuoNeb's Rx. And guaifenesin and PO levaquin She has some financial issues, can't afford inhalers. She is on O2 from last admission. Smoking cessation counseling done less than 30 minutes one-to-one Consults performed pulmonary Procedures performed CAT scan and chest x-ray Discharge Information Condition at Discharge: Improved, Stable Follow Up: Weeks (pcp re COPD, 4 weeks) Disposition/Orders: D/C to Home Scheduled Albuterol Sulfate (Proair Hfa Inhaler) 8.5 Gm Hfa.aer.ad, 2 PUFF IH PRN Q4-6HRS, #1 Prescribed by: ADEEL MCARTHUR on 05/02/15 08 Last Action: Continued on 01/21/196 by MIKEL PALACIOS MD Albuterol Sulfate (Albuterol Sulfate Conc Neb Soln) 2.5 Mg/0.5 Ml Vial.neb, 1 VIAL NEB Q6HRS for bronchitis, #120 Ref 5 Prescribed by: TYSON DE JESUS on 01/21/19931 Budesonide (Pulmicort) 0.5 Mg/2 Ml Ampul.neb, 1 VIAL NEB BID for bronchitis, #60 Ref 3 Prescribed by: TYSON DE JESUS on 01/21/19931 Ipratropium/Albuterol Sulfate (Duoneb 0.5-3(2.5) Mg/3 Ml) 3 Ml Ampul.neb, 3 ML NEB RTQID for bronchitis MDD 1 for 7 Days, #28 Prescribed by: TYSON DE JESUS on 01/21/19931 Levofloxacin (Levaquin) 500 Mg Tablet, 1 TAB PO DAILY for bronchitis, #7 Prescribed by: TYSON DE JESUS on 01/21/19931 Potassium Chloride (Potassium Chloride) 20 Meq Tab.er.prt, 1 TAB PO DAILY, #30 Ref 5 (Reported) LAST DOSE: 11/11/15 AM NEXT DOSE: 11/12/15 AM Entered as Reported by: Elicia Downs on 11/11/151451 Last Action: Continued on 01/21/196 by MIKEL PALACIOS MD Scheduled PRN Guaifenesin/Dextromethorphan (Guaifenesin Dm Syrup) 5 Ml Syrup, 10 ML PO PRN Q6HRS PRN for COUGH MDD 1 for 7 Days Prescribed by: TYSON DE JESUS on 01/21/19931 [Nicotine 21MG] 1 PATCH PATCH, 1 PATCH TD PRN DAILY PRN for SMOKING CESSATION MDD 1, #10 Prescribed by: TYSON DE JESUS on 01/21/19931 Discontinued Medications Amoxicillin/Potassium Clav (Augmentin 875-125 Tablet) 1 Each Tablet, 1 TAB PO BID, #14 (Reported) START IMMEDIATELY Entered as Reported by: Elicia Downs on 11/11/151452 Last Action: HELD on 01/21/19742 by TYSON GRIER MD January 21, 2019 09:36
--- NOTE | 2019-01-21 10:24 | NUR ---
Patient was discharged from the unit at 1021. Patient left the unit ambulatory with her belongings and discharge paperwork. Discharge information was discussed with the patient prior to her departure and she had no quesitons or concerns regarding the information provided to her.
== END 2019-01-21 10:21 | disposition home or self-care (01) | DRG 871 ==
LOC: ER 09:27 → 5 NORTH 12:45
PROVIDERS: ADMIT Family Medicine; ATTEND Family Medicine
DX: A41.9 Sepsis, unspecified organism (principal); J96.21 Acute and chronic respiratory failure with hypoxia; J44.1 Chronic obstructive pulmonary disease with (acute) exacerbation; J44.0 Chronic obstructive pulmonary disease with (acute) lower respiratory infection; I10 Essential (primary) hypertension; F17.210 Nicotine dependence, cigarettes, uncomplicated; I48.2 Chronic atrial fibrillation; J20.9 Acute bronchitis, unspecified; Z87.01 Personal history of pneumonia (recurrent); Z82.5 Family history of asthma and other chronic lower respiratory diseases; Z83.3 Family history of diabetes mellitus; Z99.81 Dependence on supplemental oxygen; Z80.52 Family history of malignant neoplasm of bladder; Z59.9 Problem related to housing and economic circumstances, unspecified
CPT/HCPCS: 36415; 71046; 71250; 80053; 82553; 83605; 83690; 83735; 83880; 84484; 85007; 85025; 93005; 94640; 94760; 96361; 96365; 96375; J1100; J1650; J1956; J2405; J2930; J7030; J7620; 99285-25

== ENCOUNTER 2020-03-23 09:38 | Emergency (ER) | payer MEDICARE ==
[~2020-03-23] VITALS: Ht 167.6 cm; Wt 61.3 kg
[~2020-03-23 09:38] MED LIST changes: +ALBU2.5V14 NEB; +BUDE0.5A3 NEB; +GUAI5SYR PO; +IPRA3AMP29 NEB; +Nicotine 21MG TD
[2020-03-23] MEDS ORDERED: methylPREDNISolone SOD SUCC PF 125 MG/2 ML VIAL. ONE (10:19)
--- NOTE | 2020-03-23 10:26 | PHYS DOC ---
Past Medical History Past Medical History: A-Fib, COPD, Hypertension, Pneumonia Additional Past Medical Histor: HX OF PNEUMONIA Past Surgical History: Other Additional Past Surgical Histo: R Ankle Fx Smoking Status: Current Every Day Smoker Alcohol Use: Occasionally Drug Use: None General Adult EDM: Chief Complaint: SHORTNESS OF BREATH HPI: HPI: Patient is a 64 year old female presents for shortness of breath. Patient was admitted to our hospital 2 months ago for acute exacerbation of COPD and discharge and reports being short of breath ever since discharge. She says she has acutely worsened in the last 1 week. Nothing known makes better, physical exertion makes worse. She denies being in any type of pain, specifically denies any chest pain. Denies any cough or sputum production, no fever, no known COVID contacts. Patient reports being consistently short of breath and that it was bothering her prompting her to visit our ER for evaluation today. Of note, patient stopped seeing her PCP 2 years ago. At that time, she stopped all home medications. She has been taking her ANT inhaler every 4 hours in addition to expectorants at home. She has history of requiring oxygen at home but stopped this several months ago. Review of Systems: Review of Systems: Constitutional: Denies fever or chills. [] Eyes: Denies change in visual acuity. [] HENT: Denies nasal congestion or sore throat. [] Respiratory: Denies cough or sputum production. Admits to shortness of breath and wheezes. [] Cardiovascular: Denies chest pain or edema. [] GI: Denies abdominal pain, nausea, vomiting, bloody stools or diarrhea. [] : Denies dysuria. [] Musculoskeletal: Denies back pain or joint pain. [] Integument: Denies rash. [] Neurologic: Denies headache, focal weakness or sensory changes. [] Endocrine: Denies polyuria or polydipsia. [] Lymphatic: Denies swollen glands. [] Psychiatric: Denies depression or anxiety. [] Heart Score: HEART Score for Chest Pain: HEART Score for Chest Pain Response (Comments) Value History Slighlty/Non-Suspicious 0 ECG Normal 0 Age > 65 2 Risk Factors >3 Risk Factors or Hx CAD 2 Troponin < Normal Limit 0 Total 4 Risk Factors: Risk Factors: DM, Current or recent (<one month) smoker, HTN, HLP, family history of CAD, obesity. Risk Scores: Score 0 - 3: 2.5% MACE over next 6 weeks - Discharge Home Score 4 - 6: 20.3% MACE over next 6 weeks - Admit for Clinical Observation Score 7 - 10: 72.7% MACE over next 6 weeks - Early Invasive Strategies Current Medications: Current Medications Medications (Trade) Dose Ordered Sig/Guillermo Start Time Stop Time Status Last Admin Dose Admin Methylprednisolone Sodium Succinate (SOLU-Medrol 125MG VIAL) 125 mg STK-MED ONCE 03/23/20 10:19 03/23/20 10:20 DC Allergies: Allergies: Allergies Coded Allergies Type Severity Reaction Last Updated Verified No Known Drug Allergies 01/12/15 No Physical Exam: PE: Constitutional: Well developed, thin appearing, appears older than stated age, no acute distress, non-toxic appearance. [] HENT: Normocephalic, atraumatic, bilateral external ears normal, oropharynx moist, no oral exudates, nose normal. [] Eyes: PERRLA, EOMI, conjunctiva normal, no discharge. [] Neck: Normal range of motion, no tenderness, supple, no stridor. [] Cardiovascular:Heart rate regular rhythm, no murmur [] Lungs & Thorax: Bilateral breath sounds clear to auscultation with moderate end expiratory wheezes heard in all lung lopez [] Abdomen: Bowel sounds normal, soft, no tenderness, no masses, no pulsatile masses. [] Skin: Warm, dry, no erythema, no rash. [] Back: No tenderness, no CVA tenderness. [] Extremities: No tenderness, no cyanosis, no clubbing, ROM intact, no edema. [] Neurologic: Alert and oriented X 3, normal motor function, normal sensory function, no focal deficits noted. [] Psychologic: Affect normal, judgement normal, mood normal. [] Current Patient Data: Labs: Laboratory Tests Test 03/23/20 10:10 White Blood Count 8.5 x10^3/uL Red Blood Count 4.85 x10^6/uL Hemoglobin 14.4 g/dL Hematocrit 42.0 % Mean Corpuscular Volume 87 fL Mean Corpuscular Hemoglobin 30 pg Mean Corpuscular Hemoglobin Concent 34 g/dL Red Cell Distribution Width 13.7 % Platelet Count 230 x10^3/uL Neutrophils (%) (Auto) 67 % Lymphocytes (%) (Auto) 15 % Monocytes (%) (Auto) 8 % Eosinophils (%) (Auto) 9 % Basophils (%) (Auto) 1 % Neutrophils # (Auto) 5.7 x10^3/uL Lymphocytes # (Auto) 1.3 x10^3/uL Monocytes # (Auto) 0.7 x10^3/uL Eosinophils # (Auto) 0.7 x10^3/uL Basophils # (Auto) 0.1 x10^3/uL Sodium Level 143 mmol/L Potassium Level 3.8 mmol/L Chloride Level 106 mmol/L Carbon Dioxide Level 31 mmol/L Anion Gap 6 Blood Urea Nitrogen 10 mg/dL Creatinine 1.0 mg/dL Estimated GFR (Cockcroft-Gault) 55.5 BUN/Creatinine Ratio 10 Glucose Level 97 mg/dL Calcium Level 8.9 mg/dL Total Bilirubin 0.3 mg/dL Aspartate Amino Transf (AST/SGOT) 17 U/L Alanine Aminotransferase (ALT/SGPT) 20 U/L Alkaline Phosphatase 86 U/L Troponin I Quantitative < 0.017 ng/mL Total Protein 7.5 g/dL Albumin 3.5 g/dL Albumin/Globulin Ratio 0.9 Current Medications Medications (Trade) Dose Ordered Sig/Guillermo Route PRN Reason Start Time Stop Time Status Last Admin Dose Admin Methylprednisolone Sodium Succinate (SOLU-Medrol 125MG VIAL) 125 mg STK-MED ONCE .ROUTE 03/23/20 10:19 03/23/20 10:20 DC Albuterol/ Ipratropium (Duoneb) 3 ml 1X ONCE NEB 03/23/20 10:30 03/23/20 10:31 DC 03/23/20 10:30 Methylprednisolone Sodium Succinate (SOLU-Medrol 125MG VIAL) 125 mg 1X ONCE IV 03/23/20 10:30 03/23/20 10:31 DC 03/23/20 10:48 Aspirin (Esteban Aspirin) 325 mg 1X ONCE PO 03/23/20 10:30 03/23/20 10:31 DC 03/23/20 10:48 Vital Signs: Vital Signs Date Time Temp Pulse Resp B/P (MAP) Pulse Ox O2 Delivery O2 Flow Rate FiO2 03/23/20 12:59 84 23 207/121 (149) 98 Nasal Cannula 1.0 03/23/20 12:29 85 23 178/131 (147) 98 Nasal Cannula 1.0 03/23/20 11:59 82 18 168/100 (122) 97 Nasal Cannula 1.0 03/23/20 11:29 84 25 183/101 (128) 97 Nasal Cannula 1.0 03/23/20 11:03 99 Nasal Cannula 2.0 03/23/20 10:59 82 29 192/103 (132) 98 Nasal Cannula 1.0 03/23/20 10:29 80 28 185/106 (132) 98 Nasal Cannula 1.0 03/23/20 10:00 98.0 88 28 193/102 (132) 99 Nasal Cannula 98.0 EKG: EKG: EKG read and interpreted by myself as normal sinus rhythm, unremarkable intervals, no acute ischemic changes, no STEMI Radiology/Procedures: Radiology/Procedures: PROCEDURE: PORTABLE CHEST 1V EXAM: Chest, single view. HISTORY: Shortness of breath. COMPARISON: 01/20/2019 FINDINGS: A frontal view of the chest obtained. There is no infiltrate, pleural effusion or pneumothorax. The heart is normal in size. IMPRESSION: No acute pulmonary finding. Electronically signed by: Elicia Whiting MD (03/23/2020 11:10 AM) [id number] Course & Med Decision Making: Course & Med Decision Making Patient seen and evaluated by myself on ED arrival Patient had markedly hypertensive. Remaining history and physical exam non- concerning for any emergent pathology Pertinent labs and imaging studies ordered and reviewed Breathing treatment and IV steroids administered to patient with moderate symptomatic improvement ED course discussed at length with patient. Discussed no life-threatening pathology identified Discussed importance of establishing with PCP in outpatient setting for continuity of care Discussed need to stop smoking I am sending patient home with prednisone burst as she does not meet criteria for antibiotics for AECOPD. I am also starting patient on lisinopril 5 mg daily for her blood pressure. She has history of taking daily blood pressure medications but unsure what she previously took. Discussed side effects of prescribed meds. Discussed importance of PCP follow- up in 2 to 7 days for follow-up and to establish care Strict return precautions discussed with good understanding demonstrated by patient. All questions and concerns addressed prior to ED departure Dori Disclaimer: Dori Disclaimer: This electronic medical record was generated, in whole or in part, using a voice recognition dictation system. Departure Departure Impression: Primary Impression: Bronchitis Additional Impression: HTN (hypertension) Disposition: HOME, SELF-CARE Referrals: ADEEL MCARTHUR MD (PCP) Patient Instructions: Acute Bronchitis, [id number], Hypertension, Lisinopril tablets Additional Instructions: As discussed prior to ED discharge, please follow-up with your primary care physician. A list of local PCPs are seen below Please follow-up to ensure resolution of acute bronchitis. You will likely need pulmonary function testing and maintenance inhalers Please follow-up on blood pressure. You were started on 5 mg lisinopril daily. You will likely need repeat labs to check potassium level [facility] [address] [place] [address] [facility] [address] [place] [address] [facility] [address] [facility] [place] [address] [facility] [address] [place] [address] [facility] [address] [place] [address] [facility] [address] [place] [address] [facility] [address] [place] [address] [facility] [address] [place] [address] [facility] [address] [place] [address] [facility] [address] [place] [address] Scripts Lisinopril (LISINOPRIL) 5 Mg Tablet 1 TAB PO DAILY for 30 Days, #30 TAB 5 Refills Prov: SUAD GERMAIN DO 03/23/20 Prednisone (PREDNISONE) 50 Mg Tablet 1 TAB PO DAILY, #4 TAB Prov: SUAD GERMAIN DO 03/23/20 Justicifation of Admission Dx: Justifications for Admission: Justification of Admission Dx: N/A SUAD GERMAIN DO Mar 23, 2020 10:25
[2020-03-23] MEDS ORDERED: methylPREDNISolone SOD SUCC PF 125 MG/2 ML VIAL. IV ONE (10:30)
[2020-03-23] MEDS ORDERED: IPRATRPIUM/ALBUTEROL 0.5/2.5MG 3 ML NEBU. NEB ONE (10:30)
[2020-03-23] MEDS ORDERED: ASPIRIN 325 MG TABLET PO ONE (10:30)
[2020-03-23 10:50] LABS: BASO # 0.1 x10^3/uL (0.0-0.2); BASO % 1 % (0-3); EOS # 0.7 x10^3/uL (0.0-0.7); EOS % 9 % (0-3); HEMOGLOBIN 14.4 g/dL (12.0-15.5); LYMPH # 1.3 x10^3/uL (1.0-4.8); LYMPH % 15 % (24-48); MEAN CORPUSCULAR HEMOGLOBIN 30 pg (25-35); MEAN CORPUSCULAR HGB CONC 34 g/dL (31-37); MEAN CORPUSCULAR VOLUME 87 fL (79-100); MONO # 0.7 x10^3/uL (0.0-1.1); MONO % 8 % (0-9); NEUT # 5.7 x10^3/uL (1.8-7.7); NEUT % 67 % (31-73); PLATELET COUNT 230 x10^3/uL (140-400); RED BLOOD COUNT 4.85 x10^6/uL (3.50-5.40); RED CELL DISTRIBUTION WIDTH 13.7 % (11.5-14.5); WHITE BLOOD COUNT 8.5 x10^3/uL (4.0-11.0)
[2020-03-23 10:58] LABS: CALCIUM 8.9 mg/dL (8.5-10.1); GFR 55.5; POTASSIUM 3.8 mmol/L (3.5-5.1)
[2020-03-23 11:04] LABS: ALBUMIN 3.5 g/dL (3.4-5.0); ALBUMIN/GLOBULIN RATIO 0.9 (1.0-1.7); TOTAL BILIRUBIN 0.3 mg/dL (0.2-1.0); TOTAL PROTEIN 7.5 g/dL (6.4-8.2)
--- NOTE | 2020-03-23 11:13 | RAD ---
EXAM: Chest, single view. HISTORY: Shortness of breath. COMPARISON: 01/20/2019 FINDINGS: A frontal view of the chest obtained. There is no infiltrate, pleural effusion or pneumothorax. The heart is normal in size. IMPRESSION: No acute pulmonary finding. Electronically signed by: Elicia Whiting MD (03/23/2020 11:10 AM) [id number]
[2020-03-23] MEDS ORDERED: LISI-338 PO (12:38)
[2020-03-23] MEDS ORDERED: PRED50TA PO (12:38)
[2020-03-23 12:59] VITALS: BP 207/121
== END 2020-03-23 13:00 | disposition home or self-care (01) ==
LOC: ER 09:38
DX: J44.9 Chronic obstructive pulmonary disease, unspecified (principal); I10 Essential (primary) hypertension; I48.91 Unspecified atrial fibrillation; F17.200 Nicotine dependence, unspecified, uncomplicated
CPT/HCPCS: 36415; 71045; 80053; 84484; 85025; 94640; 96374; 99285; J2930